=== PATIENT | female | born 1980 | race Caucasian/White ===

== ENCOUNTER 2016-12-25 06:45 | Emergency (ER) | payer MEDICAID ==
[~2016-12-25] VITALS: Ht 160 cm; Wt 74.8 kg
[~2016-12-25 06:45] MED LIST: COLACE100 M1 PO; FLOMAX0.4 MG PO; NAPROSYN500 MG PO; NORCO 325 MG-7.1 TAB PO; ULTRAM50 MG PO
[2016-12-25 06:49] VITALS: BP 97/59
--- NOTE | 2016-12-25 06:59 | NUR ---
PATIENT PRESENTS TO ED WITH RIGHT FLANK PAIN X 3 DAYS AND COUGH . PT DENIES N/V/D; SKIN IS PINK/WARM/DRY; AAOX4 WITH EVEN AND STEADY GAIT; LUNGS CLEAR BL; HR EVEN AND REGULAR; PT DENIES ANY FEVER, CP, SOB AT THIS TIME; PATIENT STATES PAIN OF 10/10 AT THIS TIME; VSS; PATIENT POSITIONED FOR COMFORT; HOB ELEVATED; BEDRAILS UP X2; BED DOWN. ER MD MADE AWARE OF PT STATUS.
--- NOTE | 2016-12-25 07:19 | NUR ---
Dr. Alonzo evaluating patient at bedside.
[2016-12-25] MEDS ORDERED: NACL 0.9% 1,000 ML IV SCH (07:24)
[2016-12-25] MEDS ORDERED: KETOROLAC 30 MG/ML VIAL IVP ONE (07:25)
[2016-12-25] MEDS ORDERED: ONDANSETRON 4 MG/2 ML VIAL IVP ONE (07:25)
--- NOTE | 2016-12-25 07:46 | NUR ---
Ultrasound at bedside.
--- NOTE | 2016-12-25 08:59 | NUR ---
Patient appears to be resting comfortably in bed. Vital Signs within normal limits. Respirations even and unlabored.
[2016-12-25 10:07] VITALS: BP 88/55
--- NOTE | 2016-12-25 10:09 | NUR ---
Patient discharged with v/s stable. Written and verbal after care instructions given and explained. Patient alert, oriented and verbalized understanding of instructions. Ambulatory with steady gait. All questions addressed prior to discharge. ID band removed. Patient advised to follow up with PMD. Rx of NORCO AND ZOFRAN given. Patient educated on indication of medication including possible reaction and side effects. Opportunity to ask questions provided and answered.
== END 2016-12-25 09:18 | disposition home or self-care (01) ==
LOC: MED 06:45
DX: B34.9 Viral infection, unspecified (principal); Z87.442 Personal history of urinary calculi
CPT/HCPCS: 36415; 76705; 80053; 81001; 81025; 83605; 83690; 83735; 85025; 87040; 96361; 96374; 96375; 99285; J1885; J2405; J7030; Q0092

== ENCOUNTER 2017-11-10 15:17 | Emergency (ER) | payer MEDICAID ==
[~2017-11-10] VITALS: Ht 157.5 cm; Wt 75.0 kg
[~2017-11-10 15:17] MED LIST changes: +ACET-2863 PO; -COLACE100 M1 PO; +DOCU-299 PO; -FLOMAX0.4 MG PO; +NAPR500T1 PO; -NAPROSYN500 MG PO; -NORCO 325 MG-7.1 TAB PO; +TAMS0.4C96 PO; -ULTRAM50 MG PO
[2017-11-10 15:51] VITALS: BP 126/75
--- NOTE | 2017-11-10 15:52 | NUR ---
PT AA&O X 4 WITH EVEN AND STEADY GAIT; PT TO LOBBY AWAITING OPEN AVAILABLE BED AT THIS TIME.
--- NOTE | 2017-11-10 16:34 | NUR ---
patient to er bed 11
--- NOTE | 2017-11-10 16:39 | NUR ---
37F BIB FAMILY C/O N/V/D , BL LOWER BACK PAIN & LOWER ABD PAINX 4 DAYS WITH HEMATURIA.HX: KIDNEY STONES.RX: PT DENIES.SKIN IS PINK/WARM/DRY; AAOX4 WITH EVEN AND STEADY GAIT; LUNGS CLEAR BL; PATIENT POSITIONED FOR COMFORT; HOB ELEVATED; BEDRAILS UP X2; BED DOWN. ER MD MADE AWARE OF PT STATUS.
[2017-11-10] MEDS ORDERED: NACL 0.9% 500 ML IV ONE ×2 (16:58)
[2017-11-10] MEDS ORDERED: KETOROLAC 30 MG/ML VIAL IVP ONE (17:00)
[2017-11-10] MEDS ORDERED: ONDANSETRON 4 MG/2 ML VIAL IVP ONE (17:00)
[2017-11-10 18:05] VITALS: BP 126/75
--- NOTE | 2017-11-10 18:06 | NUR ---
Patient discharged with v/s stable. Written and verbal after care instructions given and explained. Patient alert, oriented and verbalized understanding of instructions. Ambulatory with steady gait. All questions addressed prior to discharge. ID band removed. Patient advised to follow up with PMD. Rx of ZOFRAN, TRAMADOL, AND MOTRIN given. Patient educated on indication of medication including possible reaction and side effects. Opportunity to ask questions provided and answered.
== END 2017-11-10 18:06 | disposition home or self-care (01) ==
LOC: MED 15:17
DX: N20.0 Calculus of kidney (principal); Z79.899 Other long term (current) drug therapy
CPT/HCPCS: 74176; 96361; 96374; 96375; 99284; J1885; J2405; J7030

== ENCOUNTER 2019-02-08 19:35 | Emergency (ER) | payer MEDICAID ==
[~2019-02-08] VITALS: Ht 154.9 cm; Wt 81.6 kg
[~2019-02-08 19:35] MED LIST changes: -ACET-2863 PO; +HYDR-5123 PO; +NAPR-54 PO; -NAPR500T1 PO
[2019-02-08 20:05] VITALS: BP 105/74
--- NOTE | 2019-02-08 20:13 | NUR ---
AMBULATED TO LOBBY WITH VSS. PROVIDING URINE.
--- NOTE | 2019-02-08 21:18 | NUR ---
PT AMBULATED TO BED 1
--- NOTE | 2019-02-08 21:40 | NUR ---
PATIENT PRESENTS TO ED WITH FELL OFF STEP-LADDER AT HOME. C/O LEFT HIP AND KNEE PAIN 5/10. BRISING NOTED. VSS. CMS INTACT BILAT LOWER EXTREMETIES. ALSO C/O BURNING WITH URINATION AND WISHES TO BE EVALUATED FOR UTI.DENIES N/V/D; SKIN IS PINK/WARM/DRY; AAOX4 WITH EVEN AND STEADY GAIT; LUNGS CLEAR BL; HR EVEN AND REGULAR; PT DENIES ANY FEVER, CP, SOB, OR COUGH AT THIS TIME; PATIENT STATES PAIN OF 5/10 AT THIS TIME; VSS; PATIENT POSITIONED FOR COMFORT; HOB ELEVATED; BEDRAILS UP X2; BED DOWN. ER MD MADE AWARE OF PT STATUS.
[2019-02-08 22:40] VITALS: BP 122/67
--- NOTE | 2019-02-08 22:40 | NUR ---
Patient discharged with v/s stable. Written and verbal after care instructions given and explained. Patient alert, oriented and verbalized understanding of instructions. Ambulatory with steady gait. All questions addressed prior to discharge. ID band removed. Patient advised to follow up with PMD. Rx of tramadol and motrin given. Patient educated on indication of medication including possible reaction and side effects. Opportunity to ask questions provided and answered.
== END 2019-02-08 22:41 | disposition home or self-care (01) ==
LOC: MED 19:35
DX: S70.02XA Contusion of left hip, initial encounter (principal); S80.02XA Contusion of left knee, initial encounter; N39.0 Urinary tract infection, site not specified; Z87.442 Personal history of urinary calculi; Z79.1 Long term (current) use of non-steroidal anti-inflammatories (NSAID); Z79.899 Other long term (current) drug therapy; Z79.891 Long term (current) use of opiate analgesic; W19.XXXA Unspecified fall, initial encounter; Y93.89 Activity, other specified; Y92.89 Other specified places as the place of occurrence of the external cause; Y99.8 Other external cause status
CPT/HCPCS: 73501; 73562; 81002; 81025; 87086; 87186; 99284

== ENCOUNTER 2019-12-24 19:22 | Emergency (ER) | payer MEDICAID ==
[~2019-12-24] VITALS: Ht 157.5 cm; Wt 86.2 kg
[2019-12-24 19:33] VITALS: BP 128/68
--- NOTE | 2019-12-24 19:35 | NUR ---
PT AMBULATED TO BED #12
--- NOTE | 2019-12-24 20:06 | NUR ---
BIB SELF C/O RIGHT WRIST PAIN X4 DAYS, DENIES INJURY. CMS + IN BILAT UPPER EXT. /10 PAIN. ROM IN TACT. SKIN IN TACT/COOL/ DRY. PT ALSO COMPLAINS OF FREQUENT URINATION AND BURNING STARTING IN THE BEGINNING OF THE MONTH. FLANK PAIN PRSENT 05/04. DENIES SOB/CP. RESP EVEN AND UNLABORED. PMH: UTI, RENAL STONES NKA
--- NOTE | 2019-12-24 20:09 | NUR ---
PT RIGHT WRIST PLACED IN RIGHT SIDE VELCRO IMMOBILIZER PER PA ORDERS, CMS WNL BEFORE AND AFTER.
[2019-12-24] MEDS ORDERED: KETOROLAC 30 MG/ML VIAL IM ONE (20:10)
[2019-12-24] MEDS ORDERED: cefTRIAXone 1,000 MG in LIDOCAINE MPF 1% 2.1 ML IM ONE (20:30)
[2019-12-24] MEDS ORDERED: LIDOCAINE MPF 1% 5 ML ONE (20:31)
[2019-12-24] MEDS ORDERED: cefTRIAXone 1,000 MG VIAL ONE (20:31)
[2019-12-24 20:52] VITALS: BP 128/68
--- NOTE | 2019-12-24 20:53 | NUR ---
Patient discharged with v/s stable. Written and verbal after care instructions given and explained. Patient alert, oriented and verbalized understanding of instructions. Ambulatory with steady gait. All questions addressed prior to discharge. ID band removed. Patient advised to follow up with PMD. Rx of NAPROXEN, MACROBID, PREDNISONE given. Patient educated on indication of medication including possible reaction and side effects. Opportunity to ask questions provided and answered.
== END 2019-12-24 20:53 | disposition home or self-care (01) ==
LOC: MED 19:22
DX: G56.01 Carpal tunnel syndrome, right upper limb (principal); N39.0 Urinary tract infection, site not specified; Z87.442 Personal history of urinary calculi; Z90.710 Acquired absence of both cervix and uterus; Z79.899 Other long term (current) drug therapy
CPT/HCPCS: 29125; 73110; 81002; 81025; 96372; 99283; J0696; J1885; J2001; Q0092

== ENCOUNTER 2020-10-06 22:35 | Emergency (ER) | payer MEDICAID ==
[~2020-10-06] VITALS: Ht 157.5 cm; Wt 76.2 kg
[2020-10-06 22:45] VITALS: BP 113/87
--- NOTE | 2020-10-06 22:51 | NUR ---
PT AMBULATED TO RESTROOM TO PROVIDE UA.
--- NOTE | 2020-10-06 23:01 | NUR ---
40 YO F BIB SELF FOR C/C OF 06/03 PAIN TO R SIDE OF BODY POST FALL X3DAYS. STATED SHE HIT HER HEAD AGAINST A CHAIR LEG, NO LOSS OF CONSCIOUSNESS. PERRLA, NO BUMPS ON HEAD FELT. PT STATED SHE FEELS BACK PAIN RADIATES TO UPPER ABD, VISIBLE BULDGE. BOWEL SOUNDS ACTIVE X4. SOFT TO TOUCH. PAIN RETRACTS WITH TOUCH. PT STATED SHE TOOK ADVIL FOR PAIN WITH SOME RELIEF. NO VISIBLE BRUISES. PT PLACED IN GOWN, GIVEN A WARM BLANKET. BED LOCKED IN LOWEST POSITION, SIDE RAILS X1. HX: KIDNEY STONES RX: DENIES NKA LMP:09/22/20
--- NOTE | 2020-10-06 23:12 | NUR ---
ERMD AT BEDSIDE.
[2020-10-06] MEDS ORDERED: KETOROLAC 60 MG/2 ML VIAL IM ONE (23:20)
--- NOTE | 2020-10-06 23:36 | NUR ---
Note undone in [facility] - 10/06/20 at 2337 by [email or web address] PT AMBUALTED TO BED 7 WITH STEADY GAIT. Addendum: 10/06/20 at 2336 by [email or web address] Amendment undone in [facility] - 10/06/20 at 2337 by [email or web address] BED 6
--- NOTE | 2020-10-06 23:36 | NUR ---
RAD AT BEDSIDE
--- NOTE | 2020-10-07 00:28 | NUR ---
PT TAKEN TO RAD VIA W/C
--- NOTE | 2020-10-07 00:48 | NUR ---
PT RETURNED FROM RAD VIA WHEELCHAIR
[2020-10-07 01:31] VITALS: BP 122/71
== END 2020-10-07 01:31 | disposition home or self-care (01) ==
LOC: MED 22:35
DX: S20.211A Contusion of right front wall of thorax, initial encounter (principal); S70.01XA Contusion of right hip, initial encounter; N28.9 Disorder of kidney and ureter, unspecified; Z79.899 Other long term (current) drug therapy; W19.XXXA Unspecified fall, initial encounter; Y93.89 Activity, other specified; Y92.89 Other specified places as the place of occurrence of the external cause; Y99.8 Other external cause status
CPT/HCPCS: 71101; 72170; 81002; 81025; 96372; 99284; J1885; 99283

== ENCOUNTER 2021-01-17 03:05 | Emergency (ER) | payer MEDICAID ==
[~2021-01-17] VITALS: Ht 157.5 cm; Wt 86.2 kg
[~2021-01-17 03:05] MED LIST changes: +HYDR-5080 PO; -HYDR-5123 PO
[2021-01-17 03:12] VITALS: BP 115/70
--- NOTE | 2021-01-17 03:12 | NUR ---
TO BED AMBULATORY
[2021-01-17] MEDS ORDERED: NACL 0.9% 1,000 ML IV ONE ×2 (03:25→04:40)
[2021-01-17] MEDS ORDERED: KETOROLAC 15 MG/ML VIAL IVP ONE (03:25)
[2021-01-17] MEDS ORDERED: MORPHINE SULFATE 2 MG/ML SYR IVP ONE ×2 (03:25→04:40)
--- NOTE | 2021-01-17 03:31 | NUR ---
Pt c/o lower abd x1 day with dysuria and nausea. States hx of gallstones a few years ago. Noted moaning and guarding abd. States she took a [place] but did not have any pain relief. A/Ox4, steady gait. VSS.
[2021-01-17 03:47] LABS: APPEARANCE,URINE SL CLOUDY (CLEAR); BILIRUBIN,URINE NEGATIVE (NEGATIVE); BLOOD, URINE 2+ (NEGATIVE); COLOR,URINE YELLOW (YELLOW); LEUKOCYTE ESTERASE ,URINE 3+ (NEGATIVE); NITRITE, URINE NEGATIVE (NEGATIVE); UGLUCOSE NEGATIVE (NEGATIVE)
[2021-01-17 03:52] LABS: BASOPHILS # (AUTO) 0.1 K/uL (0.00-0.22); EOSINOPHILS # (AUTO) 0.1 K/uL (0-0.4); EOSINOPHILS % (AUTO) 1.3 % (0.0-4.0); HEMATOCRIT 41.2 % (36-48); HEMOGLOBIN 13.2 g/dL (12.0-16.0); LYMPHOCYTES # (AUTO) 3.5 K/uL (2.5-16.5); LYMPHOCYTES % (AUTO) 32.3 % (20.5-51.1); MEAN CORPUSCULAR HEMOGLOBIN 25 pg (27-31); MEAN CORPUSCULAR HGB CONC 32 g/dL (33-37); MEAN CORPUSCULAR VOLUME 79.2 fL (80-94); MONOCYTES # (AUTO) 0.5 K/uL (0.8-1.0); MONOCYTES % (AUTO) 4.2 % (1.7-9.3); NEUTROPHILS # (AUTO) 6.5 K/uL (1.8-7.7); NEUTROPHILS % (AUTO) 61.2 % (42.2-75.2); PLATELET COUNT (AUTO) 273 K/uL (140-450); RED CELL DISTRIBUTION WIDTH 15.9 % (11.6-13.7); WHITE BLOOD COUNT (AUTO) 10.7 K/uL (4.8-10.8)
[2021-01-17 04:10] LABS: ALBUMIN 3.7 g/dL (3.4-5.0); ANION GAP 15.2 (8-16); CARBON DIOXIDE 24.6 mmol/L (21-32); CREATININE 1.1 mg/dL (0.6-1.3); POTASSIUM 3.8 mmol/L (3.5-5.1); TOTAL BILIRUBIN 0.2 mg/dL (0.0-1.0)
[2021-01-17 04:17] LABS: RBC,URINE 0-5 /HPF (0-5)
[2021-01-17 04:18] LABS: WBC,URINE 20-60 /HPF (0-5)
[2021-01-17] MEDS ORDERED: cefTRIAXone 1,000 MG VIAL ONE (04:36)
[2021-01-17 06:02] VITALS: BP 120/81
--- NOTE | 2021-01-17 06:04 | NUR ---
Patient discharged with v/s stable. Written and verbal after care instructions given and explained. Patient alert, oriented and verbalized understanding of instructions. Ambulatory with steady gait. All questions addressed prior to discharge. ID band removed. IV removed and pressure applied. Patient advised to follow up with PMD. Rx of Motrin, cefpodoxime proxetil, flomax, and [place] given. Patient educated on indication of medication including possible reaction and side effects. Opportunity to ask questions provided and answered.
--- NOTE | 2021-01-20 08:52 | NUR ---
LATE ENTRY -- ROCEPHIN INFUSION COMPLETED AT 0520 01/17/21
== END 2021-01-17 06:03 | disposition home or self-care (01) ==
LOC: MED 03:05
DX: N20.1 Calculus of ureter (principal); N39.0 Urinary tract infection, site not specified; Z87.442 Personal history of urinary calculi; Z79.899 Other long term (current) drug therapy
CPT/HCPCS: 36415; 74176; 80053; 81001; 81025; 83690; 85025; 87086; 96361; 96365; 96375; 96376; 99284; J0696; J1885; J2270; J7030

== ENCOUNTER 2021-04-20 19:36 | Emergency (ER) | payer MEDICAID ==
[~2021-04-20] VITALS: Ht 157.5 cm; Wt 84.8 kg
[2021-04-20 19:49] VITALS: BP 111/62
--- NOTE | 2021-04-20 19:55 | NUR ---
Pt. is a 40 y/o female that came into ED with c/o of left knee pain that started Saturday. SKIN IS PINK/WARM/DRY; AAOX4 WITH EVEN AND STEADY GAIT; HR EVEN AND REGULAR; PT DENIES ANY FEVER, CP, SOB, OR COUGH AT THIS TIME; PATIENT STATES PAIN OF 7/10 AT THIS TIME; VSS; PATIENT POSITIONED FOR COMFORT; HOB ELEVATED; BEDRAILS UP X2; BED DOWN. ER MD MADE AWARE OF PT STATUS. PMH: KIDNEY STONES ALLERGIES: NKA
--- NOTE | 2021-04-20 20:05 | NUR ---
DR. CHE AT BEDSIDE.
[2021-04-20] MEDS: KETOROLAC 60 MG/2 ML VIAL IM ONE (20:26)
[2021-04-20] MEDS ORDERED: IBUP-2213 PO (20:50)
[2021-04-20] MEDS ORDERED: CIPR500T4 PO (20:50)
[2021-04-20] MEDS ORDERED: ACET-8386 PO (20:51)
[2021-04-20 21:01] VITALS: BP 111/62
--- NOTE | 2021-04-20 21:01 | NUR ---
Patient discharged with v/s stable. Written and verbal after care instructions given and explained. Patient alert, oriented and verbalized understanding of instructions. Ambulatory with steady gait. All questions addressed prior to discharge. ID band removed. Patient advised to follow up with PMD. Rx of HYDROCODONE/ACETEMINOPHEN, CIPRO, IBUPROFEN given. Patient educated on indication of medication including possible reaction and side effects. Opportunity to ask questions provided and answered.
== END 2021-04-20 21:01 | disposition home or self-care (01) ==
LOC: MED 19:36
DX: M25.562 Pain in left knee (principal); N12 Tubulo-interstitial nephritis, not specified as acute or chronic; Z79.899 Other long term (current) drug therapy; Z87.442 Personal history of urinary calculi; Z98.890 Other specified postprocedural states
CPT/HCPCS: 81002; 81025; 96372; 99283; J1885

== ENCOUNTER 2021-07-16 01:44 | Emergency (ER) | payer MEDICAID ==
[~2021-07-16] VITALS: Ht 157.5 cm; Wt 82.6 kg
[~2021-07-16 01:44] MED LIST changes: +ACET-8386 PO; +CIPR500T4 PO; +IBUP-2213 PO
[2021-07-16 02:22] VITALS: BP 134/81
--- NOTE | 2021-07-16 02:22 | NUR ---
see complete assessment
--- NOTE | 2021-07-16 02:28 | NUR ---
PATIENT AMBULATED TO THE BATHROOM FOR URINE COLLECTION
--- NOTE | 2021-07-16 02:33 | NUR ---
PATIENT TO LOBBY
[2021-07-16] MEDS ORDERED: NACL 0.9% 1,000 ML IV SCH (03:50)
[2021-07-16] MEDS ORDERED: MORPHINE SULFATE 2 MG/ML SYR IVP ONE (03:50)
[2021-07-16] MEDS ORDERED: ONDANSETRON 4 MG/2 ML VIAL IVP ONE (03:50)
[2021-07-16 04:01] LABS: APPEARANCE,URINE CLEAR (CLEAR); BILIRUBIN,URINE NEGATIVE (NEGATIVE); BLOOD, URINE NEGATIVE (NEGATIVE); COLOR,URINE YELLOW (YELLOW); LEUKOCYTE ESTERASE ,URINE TRACE (NEGATIVE); NITRITE, URINE NEGATIVE (NEGATIVE); UGLUCOSE NEGATIVE (NEGATIVE)
[2021-07-16 04:17] LABS: BASOPHILS # (AUTO) 0.1 K/uL (0.00-0.22); BASOPHILS % (AUTO) 0.5 % (0.0-2.0); EOSINOPHILS # (AUTO) 0.2 K/uL (0-0.4); EOSINOPHILS % (AUTO) 1.6 % (0.0-4.0); HEMATOCRIT 42.1 % (36-48); HEMOGLOBIN 13.7 g/dL (12.0-16.0); LYMPHOCYTES # (AUTO) 3.8 K/uL (2.5-16.5); LYMPHOCYTES % (AUTO) 38.9 % (20.5-51.1); MEAN CORPUSCULAR HEMOGLOBIN 25 pg (27-31); MEAN CORPUSCULAR HGB CONC 33 g/dL (33-37); MEAN CORPUSCULAR VOLUME 77.1 fL (80-94); MONOCYTES # (AUTO) 0.6 K/uL (0.8-1.0); MONOCYTES % (AUTO) 6.1 % (1.7-9.3); NEUTROPHILS # (AUTO) 5.2 K/uL (1.8-7.7); NEUTROPHILS % (AUTO) 52.9 % (42.2-75.2); PLATELET COUNT (AUTO) 277 K/uL (140-450); RED BLOOD CELL COUNT(AUTO) 5.46 MIL/uL (4.20-5.40); RED CELL DISTRIBUTION WIDTH 15.6 % (11.6-13.7); WHITE BLOOD COUNT (AUTO) 9.9 K/uL (4.8-10.8)
[2021-07-16 04:22] LABS: RBC,URINE 0-5 /HPF (0-5); WBC,URINE 0-5 /HPF (0-5)
--- NOTE | 2021-07-16 04:35 | NUR ---
PT TAKEN TO CHAIR C FROM CT
[2021-07-16 04:37] LABS: ALBUMIN 3.6 g/dL (3.4-5.0); ANION GAP 11.1 (8-16); CARBON DIOXIDE 28.1 mmol/L (21-32); CREATININE 0.9 mg/dL (0.6-1.3); POTASSIUM 4.2 mmol/L (3.5-5.1); TOTAL BILIRUBIN 0.2 mg/dL (0.0-1.0)
--- NOTE | 2021-07-16 05:41 | NUR ---
patient to the bathroom
[2021-07-16] MEDS ORDERED: cefTRIAXone 1,000 MG VIAL ONE (05:42)
[2021-07-16] MEDS ORDERED: IBUP-2213 PO (06:55)
[2021-07-16] MEDS ORDERED: CEPH-588 PO (06:55)
[2021-07-16] MEDS ORDERED: KETOROLAC 30 MG/ML VIAL IVP ONE (06:55)
[2021-07-16] MEDS ORDERED: PANTOPRAZOLE 40 MG INJ VIAL IVP ONE (06:55)
[2021-07-16] MEDS ORDERED: PANT40EC PO (06:56)
[2021-07-16 07:47] VITALS: BP 124/75
--- NOTE | 2021-07-16 07:53 | NUR ---
Patient discharged with v/s stable. Written and verbal after care instructions given and explained. Patient alert, oriented and verbalized understanding of instructions. Ambulatory with steady gait. All questions addressed prior to discharge. ID band removed. Patient advised to follow up with PMD. Rx of KEFLEX,PROTONIX,IBU given. Patient educated on indication of medication including possible reaction and side effects. Opportunity to ask questions provided and answered.
== END 2021-07-16 07:53 | disposition home or self-care (01) ==
LOC: MED 01:44
DX: N20.0 Calculus of kidney (principal); R82.71 Bacteriuria; Z79.899 Other long term (current) drug therapy; Z87.442 Personal history of urinary calculi
CPT/HCPCS: 36415; 74176; 80053; 81001; 81025; 83690; 84703; 85025; 96361; 96365; 96375; 99284; C9113; J0696; J1885; J2270; J2405; J7030

== ENCOUNTER 2021-08-13 18:02 | Emergency (ER) | payer MEDICAID ==
[~2021-08-13] VITALS: Ht 157.5 cm; Wt 86.6 kg
[~2021-08-13 18:02] MED LIST changes: +CEPH-588 PO; +PANT40EC PO
[2021-08-13 18:25] VITALS: BP 123/74
--- NOTE | 2021-08-13 18:27 | NUR ---
PT AMBULATED TO RESTROOM FOR UA COLLECTION.
--- NOTE | 2021-08-13 18:33 | NUR ---
41 Y/O FEMALE C/O BILATERAL FLANK PAIN 8/10 DESCRIBES SHARP RADIATES TO SUPRAPUBIC AREA X4DAYS. PT STATES +N/V FOR 2DAYS WITH +DYSURIA, +HEMATURIA, DENIES FEVER/CHILLS. PMH: KIDNEY STONES NKA
--- NOTE | 2021-08-13 19:28 | NUR ---
GAVE REPORT TO EVAN AMRADIAGA. TRANSFER OF CARE AT THIS TIME.
--- NOTE | 2021-08-13 19:33 | NUR ---
REPORT RECIEVED FROM EVAN MELTON FOR CONTINUITY OF CARE.
[2021-08-13] MEDS ORDERED: KETOROLAC 15 MG/ML VIAL IM ONE (20:00)
--- NOTE | 2021-08-13 20:22 | NUR ---
PT PLACED IN GOWN FOR CT. PROVIDED WARM BLANKET FOR COMFORT.
[2021-08-13 20:40] LABS: BILIRUBIN,URINE NEGATIVE (NEGATIVE); BLOOD, URINE TRACE-I (NEGATIVE); COLOR,URINE YELLOW (YELLOW); LEUKOCYTE ESTERASE ,URINE NEGATIVE (NEGATIVE); NITRITE, URINE NEGATIVE (NEGATIVE); UGLUCOSE NEGATIVE (NEGATIVE)
[2021-08-13 20:51] LABS: APPEARANCE,URINE SLIGHTLY HAZY (CLEAR)
[2021-08-13 20:52] LABS: CALCIUM OXALATE CRYSTALS,UR 0-10 /HPF (None Seen); RBC,URINE 0-5 /HPF (0-5)
--- NOTE | 2021-08-13 21:00 | NUR ---
PT TAKEN TO CT VIA W.C.
--- NOTE | 2021-08-13 21:05 | NUR ---
PT RETURNED FROM CT VIA W.C.
[2021-08-13] MEDS ORDERED: KETOROLAC 15 MG/ML VIAL IVP ONE (21:45)
[2021-08-13] MEDS ORDERED: SULFAMETH/TRIMETH DS 800/160MG 1 TAB PO ONE (21:45)
[2021-08-13] MEDS ORDERED: KETOROLAC 60 MG/2 ML VIAL IM ONE (22:25)
--- NOTE | 2021-08-13 23:38 | NUR ---
PT AMBULATED TO RESTROOM WITH STEADY AND EVEN GAIT.
[2021-08-13] MEDS ORDERED: SULF-58 PO (23:43)
[2021-08-13] MEDS ORDERED: IBUP-2213 PO (23:43)
[2021-08-13 23:50] VITALS: BP 121/77
--- NOTE | 2021-08-13 23:50 | NUR ---
Patient discharged with v/s stable. Written and verbal after care instructions given and explained. Patient alert, oriented and verbalized understanding of instructions. Ambulatory with steady gait. All questions addressed prior to discharge. ID band removed. Patient advised to follow up with PMD. Rx of MOTRIN AND BACTRIM given. Patient educated on indication of medication including possible reaction and side effects. Opportunity to ask questions provided and answered.
== END 2021-08-13 23:50 | disposition home or self-care (01) ==
LOC: MED 18:02
DX: N39.0 Urinary tract infection, site not specified (principal); Z79.899 Other long term (current) drug therapy; Z87.442 Personal history of urinary calculi
CPT/HCPCS: 74176; 81001; 81025; 87086; 96372; 99284; J1885

== ENCOUNTER 2021-12-19 20:44 | Emergency (ER) | payer MEDICAID ==
[~2021-12-19] VITALS: Ht 157.5 cm; Wt 94.3 kg
[~2021-12-19 20:44] MED LIST changes: +SULF-58 PO
[2021-12-19 21:32] VITALS: BP 130/81
--- NOTE | 2021-12-19 21:36 | NUR ---
PATIENT TO AWAIT IN TENT
[2021-12-19] MEDS ORDERED: ONDANSETRON 4 MG/2 ML VIAL IVP ONE (22:15)
[2021-12-19] MEDS ORDERED: MORPHINE SULFATE 2 MG/ML SYR IVP ONE (22:15)
[2021-12-19] MEDS ORDERED: NACL 0.9% 1,000 ML IV SCH (22:15)
[2021-12-19 23:34] LABS: BASOPHILS # (AUTO) 0.1 K/uL (0.00-0.22); BASOPHILS % (AUTO) 0.6 % (0.0-2.0); EOSINOPHILS # (AUTO) 0.2 K/uL (0-0.4); EOSINOPHILS % (AUTO) 2.5 % (0.0-4.0); HEMOGLOBIN 12.8 g/dL (12.0-16.0); LYMPHOCYTES % (AUTO) 33.2 % (20.5-51.1); MEAN CORPUSCULAR HEMOGLOBIN 25 pg (27-31); MEAN CORPUSCULAR HGB CONC 33 g/dL (33-37); MEAN CORPUSCULAR VOLUME 75.7 fL (80-94); MONOCYTES # (AUTO) 0.7 K/uL (0.8-1.0); MONOCYTES % (AUTO) 7.8 % (1.7-9.3); NEUTROPHILS # (AUTO) 5.1 K/uL (1.8-7.7); NEUTROPHILS % (AUTO) 55.9 % (42.2-75.2); PLATELET COUNT (AUTO) 306 K/uL (140-450); RED BLOOD CELL COUNT(AUTO) 5.16 MIL/uL (4.20-5.40); RED CELL DISTRIBUTION WIDTH 15.1 % (11.6-13.7); WHITE BLOOD COUNT (AUTO) 9.1 K/uL (4.8-10.8)
[2021-12-20 00:26] LABS: ALBUMIN 3.4 g/dL (3.4-5.0); ANION GAP 11.3 (8-16); CARBON DIOXIDE 27.5 mmol/L (21-32); POTASSIUM 3.8 mmol/L (3.5-5.1); TOTAL BILIRUBIN 0.3 mg/dL (0.0-1.0)
--- NOTE | 2021-12-20 00:56 | NUR ---
PT MOVED TO BED 10B, PER ERMD PT TOO BE DISCHARGED AT THIS TIME. PT ASSEEMENT COMPLETED BY ERMD. NO NURSING INTERVENTIONS REQUIRED AT THIS TIME. PER ERMD CANCEL URINE, NS BOLUS, MORPHINE AND SOFRAN ADMIN.
--- NOTE | 2021-12-20 00:56 | NUR ---
PATIENT MOVED TO BED 10B
[2021-12-20] MEDS ORDERED: ONDA-188 SL (01:03)
[2021-12-20] MEDS ORDERED: ALBU0.0912 IH (01:13)
[2021-12-20] MEDS ORDERED: ONDANSETRON 4 MG ODT PO ONE (01:15)
[2021-12-20] MEDS ORDERED: IBUPROFEN 800 MG TAB PO ONE (01:15)
--- NOTE | 2021-12-20 01:33 | NUR ---
Note undone in EDM - 12/20/21 at 0656 by CY 41 YO/F BIB SELF W C/O RUQ ABDOMINAL PAIN RADIATING TO R FLANK + MILD SOB, CHEST PAIN PRESSURE LIKE RADIATING TO BACK, + NAUSEA FOR APPROX 3 DAYS. PT RELATES SYMPTOMS TO BEING COVID +, PT REPORTS SYMPTOMS ARE IMPROVING BUT IS CONCERNED BC SHE HAD A RECENT RELATIVE PASS AWAY FROM COVID. PT ALSO REPORTS RECENT GALL BLADDER REMOVAL X2 MONTHS AGO. PT O2 SAT 97% ON RA. PT AMBULATORY W STADY GAIT. VSS. PT SITTING ON BED LOCKED IN LOWEST POSITION. BREATHING EVEN AND UNLABORED. NAD NOTED, WILL CONTINUE TO MONITOR. PMH:CHOLELITHIASIS, KIDNEY STONES ALLERGIES: DENIES
[2021-12-20 02:00] VITALS: BP 146/76
--- NOTE | 2021-12-20 02:00 | NUR ---
Patient discharged with v/s stable. Written and verbal after care instructions given and explained. Patient alert, oriented and verbalized understanding of instructions. Ambulatory with steady gait. All questions addressed prior to discharge. ID band removed. Patient advised to follow up with PMD. Rx of ALBUTEROL, ZOFRAN given. Patient educated on indication of medication including possible reaction and side effects. Opportunity to ask questions provided and answered.
== END 2021-12-20 02:00 | disposition home or self-care (01) ==
LOC: MED 20:44
DX: U07.1 COVID-19 (principal); R10.11 Right upper quadrant pain; R07.89 Other chest pain; Z87.442 Personal history of urinary calculi; Z79.899 Other long term (current) drug therapy
CPT/HCPCS: 36415; 71045; 76705; 80053; 83690; 84484; 84703; 85025; 93005; 99285; Q0092; Q0162

== ENCOUNTER 2022-09-13 23:10 | Emergency (ER) | payer MEDICAID ==
[~2022-09-13] VITALS: Ht 157.5 cm; Wt 83.9 kg
[~2022-09-13 23:10] MED LIST changes: -ACET-8386 PO; -CEPH-588 PO; -CIPR500T4 PO; -DOCU-299 PO; -HYDR-5080 PO; -IBUP-2213 PO; +LACT1CAP63 PO; -NAPR-54 PO; -PANT40EC PO; -SULF-58 PO; +SULF-954 PO
[2022-09-13 23:30] VITALS: BP 120/87
--- NOTE | 2022-09-13 23:30 | NUR ---
to bed ambulatory
--- NOTE | 2022-09-13 23:40 | NUR ---
ASSUME CARE OF PT, PT PLACED ON MONITOR AND GOWN, PT C/O RUQ ABD AND FLANK PAIN, PT STATES SHE WAS ADMITTED FOR A FEW DAYS DUE TO KIDNEY STONES AND INFECTION, PT STATES SHE HAS BEEN TAKING MOTRIN FOR HER PAIN BUT NO RELIEF FOR SEVERAL WEEKS.
[2022-09-13] MEDS ORDERED: NACL 0.9% 1,000 ML IV ONE (23:50)
[2022-09-13] MEDS ORDERED: MORPHINE SULFATE 4 MG/ML SYR IVP ONE (23:50)
[2022-09-13] MEDS ORDERED: ONDANSETRON 4 MG/2 ML VIAL IVP ONE (23:50)
[2022-09-13] MEDS ORDERED: KETOROLAC 30 MG/ML VIAL IVP ONE (23:55)
[2022-09-14 00:08] LABS: BASOPHILS # (AUTO) 0.1 K/uL (0.00-0.22); BASOPHILS % (AUTO) 0.9 % (0.0-2.0); EOSINOPHILS # (AUTO) 0.3 K/uL (0-0.4); EOSINOPHILS % (AUTO) 2.6 % (0.0-4.0); HEMATOCRIT 37.5 % (36-48); HEMOGLOBIN 12.2 g/dL (12.0-16.0); LYMPHOCYTES # (AUTO) 3.3 K/uL (2.5-16.5); LYMPHOCYTES % (AUTO) 33.1 % (20.5-51.1); MEAN CORPUSCULAR HEMOGLOBIN 25 pg (27-31); MEAN CORPUSCULAR HGB CONC 33 g/dL (33-37); MEAN CORPUSCULAR VOLUME 76.1 fL (80-94); MONOCYTES # (AUTO) 0.6 K/uL (0.8-1.0); NEUTROPHILS # (AUTO) 5.8 K/uL (1.8-7.7); NEUTROPHILS % (AUTO) 57.4 % (42.2-75.2); PLATELET COUNT (AUTO) 286 K/uL (140-450); RED BLOOD CELL COUNT(AUTO) 4.92 MIL/uL (4.20-5.40); RED CELL DISTRIBUTION WIDTH 17.5 % (11.6-13.7)
--- NOTE | 2022-09-14 00:09 | NUR ---
PT TAKEN TO RADIOLOGY
--- NOTE | 2022-09-14 00:17 | NUR ---
PT RETURN FROM RADIOLOGY
[2022-09-14 00:29] LABS: ALBUMIN 3.3 g/dL (3.4-5.0); ANION GAP 12.5 (8-16); POTASSIUM 4.5 mmol/L (3.5-5.1); TOTAL BILIRUBIN 0.2 mg/dL (0.0-1.0)
--- NOTE | 2022-09-14 02:00 | NUR ---
PT AMBULATED TO RESTROOM, PT STATES AFTER SHE WENT TO THE RESTROOM THE PAIN INCREASED.
--- NOTE | 2022-09-14 02:30 | NUR ---
pt resting in bed, states she feels better.
[2022-09-14] MEDS ORDERED: CEPH-588 PO (04:14)
[2022-09-14] MEDS ORDERED: ACETAMINOPHEN EXTRA STRENGTH 500 MG TAB PO ONE (04:40)
[2022-09-14] MEDS ORDERED: IBUP-1878 PO (04:42)
[2022-09-14] MEDS ORDERED: HYDROcodone/APAP 5/325 MG 1 TAB TAB PO ONE (04:45)
[2022-09-14 04:59] VITALS: BP 128/70
--- NOTE | 2022-09-14 04:59 | NUR ---
Patient discharged with v/s stable. Written and verbal after care instructions given and explained. Patient alert, oriented and verbalized understanding of instructions. Ambulatory with steady gait. All questions addressed prior to discharge. ID band removed. Patient advised to follow up with PMD. Rx sent to pharmacy. Patient educated on indication of medication including possible reaction and side effects. Opportunity to ask questions provided and answered.
== END 2022-09-14 04:59 | disposition home or self-care (01) ==
LOC: MED 23:10
DX: R10.30 Lower abdominal pain, unspecified (principal); R11.2 Nausea with vomiting, unspecified; Z87.448 Personal history of other diseases of urinary system; Z79.2 Long term (current) use of antibiotics; Z79.899 Other long term (current) drug therapy
CPT/HCPCS: 36415; 74176; 80053; 81002; 81025; 85025; 96361; 96374; 96375; 99284; J1885; J2405; J7030

== ENCOUNTER 2022-10-02 10:25 | Inpatient (IN) | payer MEDICAID ==
[~2022-10-02] VITALS: Ht 157.5 cm; Wt 81.6 kg
[~2022-10-02 10:25] MED LIST changes: +CEPH-588 PO; +IBUP-1878 PO
[2022-10-02 10:26] VITALS: BP 123/79
--- NOTE | 2022-10-02 10:40 | NUR ---
Pt ambulated to bed 12 with steady/even gait. Urine sample collected.
[2022-10-02] MEDS ORDERED: NACL 0.9% 1,000 ML IV ONE ×2 (12:15→16:10)
[2022-10-02] MEDS ORDERED: KETOROLAC 30 MG/ML VIAL IVP ONE (12:15)
[2022-10-02 13:02] LABS: BASOPHILS % (AUTO) 0.1 % (0.0-2.0); HEMATOCRIT 37.6 % (36-48); HEMOGLOBIN 12.4 g/dL (12.0-16.0); LYMPHOCYTES # (AUTO) 0.8 K/uL (2.5-16.5); LYMPHOCYTES % (AUTO) 4.5 % (20.5-51.1); MEAN CORPUSCULAR HEMOGLOBIN 25 pg (27-31); MEAN CORPUSCULAR HGB CONC 33 g/dL (33-37); MEAN CORPUSCULAR VOLUME 75.5 fL (80-94); MONOCYTES # (AUTO) 0.6 K/uL (0.8-1.0); MONOCYTES % (AUTO) 3.1 % (1.7-9.3); NEUTROPHILS # (AUTO) 17.4 K/uL (1.8-7.7); NEUTROPHILS % (AUTO) 92.3 % (42.2-75.2); PLATELET COUNT (AUTO) 242 K/uL (140-450); RED BLOOD CELL COUNT(AUTO) 4.98 MIL/uL (4.20-5.40); RED CELL DISTRIBUTION WIDTH 16.6 % (11.6-13.7); WHITE BLOOD COUNT (AUTO) 18.8 K/uL (4.8-10.8)
[2022-10-02 13:38] LABS: ALBUMIN 3.1 g/dL (3.4-5.0); ANION GAP 16.5 (8-16); CARBON DIOXIDE 23.1 mmol/L (21-32); CREATININE 1.4 mg/dL (0.6-1.3); POTASSIUM 3.6 mmol/L (3.5-5.1); TOTAL BILIRUBIN 0.8 mg/dL (0.0-1.0)
--- NOTE | 2022-10-02 14:28 | NUR ---
Patient returned from CT via gurney and placed back onto engine monitor.
[2022-10-02] MEDS ORDERED: MORPHINE SULFATE 4 MG/ML SYR IVP ONE (15:20)
[2022-10-02 15:43] LABS: BILIRUBIN,URINE NEGATIVE (NEGATIVE); BLOOD, URINE TRACE-I (NEGATIVE); COLOR,URINE YELLOW (YELLOW); LEUKOCYTE ESTERASE ,URINE 2+ (NEGATIVE); NITRITE, URINE POSITIVE (NEGATIVE); UGLUCOSE TRACE (NEGATIVE)
--- NOTE | 2022-10-02 16:00 | NUR ---
Pt laying in bed comfortably, eyes closed. All needs met at this time.
[2022-10-02 16:08] LABS: APPEARANCE,URINE HAZY (CLEAR)
[2022-10-02 16:14] LABS: RBC,URINE 0-5 /HPF (0-5); WBC,URINE 20-60 /HPF (0-5)
[2022-10-02] MEDS ORDERED: cefTRIAXone 1,000 MG VIAL ONE (16:28)
--- NOTE | 2022-10-02 16:58 | NUR ---
CRISTY SWAB COLLECTED AND WALKED TO LAB.
[2022-10-02] MEDS ORDERED: DEXT 5% /NACL 0.9% 1,000 ML IV ONE (17:30)
--- NOTE | 2022-10-02 17:57 | NUR ---
Patient will be admitted to care of Dr. Cherry. Admited to TELE. Will go to room 105B. Belongings list completed. Report to EVAN Pal.
[2022-10-02 18:05] VITALS: BP 121/86
--- NOTE | 2022-10-02 18:05 | NUR ---
RECEIVED PT FROM BRAZER INDUCTION, HALI, PT IS ALERT AND ORIENTED AND AMBULATED TO THE BED, ON ROOM AIR, ARMENIAN SPEAKING, IV LINE NOTED ON THE RIGHT AC G. 20 ON SALINE LOCK, NO SIGN OF DISTRESS NOTED AND WILL CONTINUE TO MONITOR PT.
--- NOTE | 2022-10-02 18:15 | NUR ---
MRSA SWAB DONE AND SAMPLE SENT TO LAB.
[2022-10-02] MEDS ORDERED: ACETAMINOPHEN 325 MG TAB PO PRN (18:50)
[2022-10-02] MEDS ORDERED: guaiFENesin DM 200/20 MG-10 ML 10 ML UDC PO PRN (18:50)
[2022-10-02] MEDS ORDERED: HYDROmorphone 1 MG/ML AMP IVP PRN (18:50)
[2022-10-02] MEDS ORDERED: ZOLPIDEM 5 MG TAB PO PRN (18:50)
[2022-10-02] MEDS ORDERED: POTASSIUM CHLORIDE 10 MEQ TABER PO PRN (18:50)
[2022-10-02] MEDS: DEXT 5% /NACL 0.9% 1,000 ML IV SCH (18:50)
--- NOTE | 2022-10-02 19:29 | NUR ---
RECEIVED ENDORSEMENT FROM DAY SHIFT NURSE FOR CONTINUITY OF CARE. PT IS ON BED, AWAKE, ALERT AND VERBALLY RESPONSIVE. SKIN INTACT AND WARM. IV SITE ON RIGHT AC INTACT AND PATENT, FLUSHING WELL WITH NO OBSTRUCTION. IV HYDRATION D5NS IS INFUSING WELL AT 125ML/HR. PT IS FOR POSSIBLE SURGERY PROCEDURE ON 10/03/22. SKIN INTACT WITH NO NOTED OF SKIN PROBLEM. CONTINUE MONITORING.
[2022-10-02] MEDS: PIPERACILLIN/TAZOBACTAM 3.375 GM in DEXTROSE 5% 50 ML IV SCH (19:30)
--- NOTE | 2022-10-02 19:30 | NUR ---
ENDORSED PT TO NIGHT RN FOR CONTINUITY OF CARE, PT IS STABLE AT THIS TIME AND RESTING ON THE BED.
[2022-10-02 19:39] LABS: AMYLASE 36 U/L (25-115); CHOL/HDL RATIO 2.1 (1-4.5); FREE T4 (FREE THYROXINE) 1.19 ng/dL (0.76-1.46); HDL CHOLESTEROL 56 mg/dL (40-60); LDL (CALC) 52 mg/dL (60-100); LIPASE 38 U/L (73-393); MAGNESIUM 1.2 mg/dL (1.8-2.4); PHOSPHORUS 2.4 mg/dL (2.5-4.9); THYROID STIMULATING HORMONE 2.52 uIU/mL (0.34-3.74); TRIGLYCERIDES 64 mg/dL (30-150)
[2022-10-02 19:40] LABS: PROTHROMBIN TIME 10.5 secs (10.8-13.4)
[2022-10-02] MEDS: TAMSULOSIN 0.4 MG CAP PO SCH (20:40)
[2022-10-02] MEDS: MORPHINE SULFATE 2 MG/ML SYR IVP PRN (20:42)
--- NOTE | 2022-10-02 20:42 | NUR ---
PT COMPLAINTS OF PAIN ON THE BACK AND ON THE LOWER ABDOMINAL AREA /, PAIN MEDICATION MORPHINE ADMINISTERED ORDER.
--- NOTE | 2022-10-02 23:01 | NUR ---
PT HAS MAGNESIUM LEVEL OF 1.2, PHOSPHORUS 2.4 & LIPASE 38, REPORTED TO DR. OLIVE MD ORDER MAG RIDER 2GM X 1. CALLED PHARMACY TO VERIFY THE MEDICATION. WAITING FOR PHARMACY IN PROCESSING ORDER.
[2022-10-02] MEDS ORDERED: MAG SULF 2000 MG/WATER PREMIX 50 ML IV ONE (23:05)
--- NOTE | 2022-10-02 23:30 | NUR ---
MAGNESIUM 2GM IV ADMINISTERED ORDER. PT IS AWAKE AND VERBALLY RESPONSIVE.
[2022-10-03] VITALS (12 sets, daily range): BP systolic 96–132; BP diastolic 45–73
[2022-10-03] MEDS: PIPERACILLIN/TAZOBACTAM 3.375 GM in DEXTROSE 5% 50 ML IV SCH ×4 (00:52→20:00)
--- NOTE | 2022-10-03 02:00 | NUR ---
PT NOTED WITH ON & OFF SLEEPS.
[2022-10-03] MEDS: MORPHINE SULFATE 2 MG/ML SYR IVP PRN (03:25)
--- NOTE | 2022-10-03 03:25 | NUR ---
PT COMPLAINTS OF LOWER ABDOMINAL & BACK PAIN 09/03, PAIN MEDICATION MORPHINE ADMINISTERED ORDER.
[2022-10-03] MEDS: ONDANSETRON 4 MG/2 ML VIAL IM/IVP PRN (03:37)
--- NOTE | 2022-10-03 03:37 | NUR ---
PT VERBALIZED OF HAVING NAUSEA, PT VOMITED WATER. PT ALSO COMPLAINT OF FEELING DIZZINESS. MEDICATION FOR VOMIT, ZOFRAN, ADMINISTERED ORDER.
[2022-10-03] MEDS: DEXT 5% /NACL 0.9% 1,000 ML IV SCH ×4 (05:50→21:01)
[2022-10-03 06:56] LABS: BASOPHILS % (AUTO) 0.1 % (0.0-2.0); EOSINOPHILS % (AUTO) 0.1 % (0.0-4.0); HEMATOCRIT 32.7 % (36-48); HEMOGLOBIN 10.6 g/dL (12.0-16.0); LYMPHOCYTES # (AUTO) 1.2 K/uL (2.5-16.5); LYMPHOCYTES % (AUTO) 7.6 % (20.5-51.1); MEAN CORPUSCULAR HEMOGLOBIN 25 pg (27-31); MEAN CORPUSCULAR HGB CONC 32 g/dL (33-37); MEAN CORPUSCULAR VOLUME 76.4 fL (80-94); MONOCYTES # (AUTO) 0.3 K/uL (0.8-1.0); MONOCYTES % (AUTO) 1.7 % (1.7-9.3); NEUTROPHILS # (AUTO) 14.3 K/uL (1.8-7.7); NEUTROPHILS % (AUTO) 90.5 % (42.2-75.2); PLATELET COUNT (AUTO) 147 K/uL (140-450); RED BLOOD CELL COUNT(AUTO) 4.28 MIL/uL (4.20-5.40); RED CELL DISTRIBUTION WIDTH 16.4 % (11.6-13.7); WHITE BLOOD COUNT (AUTO) 15.8 K/uL (4.8-10.8)
--- NOTE | 2022-10-03 07:03 | NUR ---
PT SIGNED CONSENT FOR SURGERY PROCEDURE THIS MORNING. PT IS AWAKE, ALERT AND ORIENTED X4.
[2022-10-03 07:25] LABS: ANION GAP 10.3 (8-16); CARBON DIOXIDE 25.3 mmol/L (21-32); CREATININE 1.5 mg/dL (0.6-1.3); POTASSIUM 3.6 mmol/L (3.5-5.1)
[2022-10-03] MEDS ORDERED: MIDAZOLAM 2 MG/2 ML VIAL ONE ×2 (07:30→07:38)
[2022-10-03] MEDS ORDERED: fentaNYL citrate 0.05 MG/ML VIAL ONE ×2 (07:30→07:39)
[2022-10-03] MEDS ORDERED: SEVOFLURANE 250 ML BTL INH ONE (07:30)
[2022-10-03] MEDS ORDERED: PROPOFOL 200 MG/20 ML VIAL IV ONE (07:30)
--- NOTE | 2022-10-03 07:40 | NUR ---
PATIENT IN OR.
[2022-10-03] MEDS ORDERED: DEXAMETHASONE 4 MG/ML VIAL ONE ×2 (08:11)
[2022-10-03] MEDS ORDERED: ONDANSETRON 4 MG/2 ML VIAL ONE (08:11)
[2022-10-03] MEDS ORDERED: METOCLOPRAMIDE 10 MG/2 ML INJ VIAL ONE (08:11)
[2022-10-03] MEDS ORDERED: PIPERACILLIN/TAZOBACTAM 3.375 GM VIAL IV ONE (08:35)
--- NOTE | 2022-10-03 09:46 | NUR ---
RECEIVED BEDSIDE REPORT FROM O.R. NURSE FOR CONTINUITY OF CARE. PT A/OX4, MONTENEGRIN SPEAKING. ABLE TO MAKE NEEDS KNOWN. ST ON MONITOR. ROOM AIR O2 SATURATION 94%. EQUAL CHEST RISE, NO S/SX OF ACUTE RESPIRATORY DISTRESS. RR 22. 20G IV TO RAC. F/C TO GRAVITY DRAINING CLEAR LIGHT YELLOW URINE. MILD WEAKNESS THROUGHOUT. STANDARD ISOLATION. CALL LIGHT WITHIN REACH, BED IN LOWEST POSITION.
[2022-10-03] MEDS ORDERED: PIPERACILLIN/TAZOBACTAM 3.375 GM in DEXTROSE 5% 50 ML IV SCH (10:00)
[2022-10-03] MEDS: TAMSULOSIN 0.4 MG CAP PO SCH ×2 (10:09→21:00)
[2022-10-03] MEDS: PANTOPRAZOLE 40 MG TABEC PO SCH (10:09)
--- NOTE | 2022-10-03 10:25 | NUR ---
CONSULTED Saravanan DURBIN FOR ORDERS. ORDERED TO KEEP PT IN ICU FOR 1 NIGHT TO CLOSELY MONITOR AND TO START REGULAR DIET.
--- NOTE | 2022-10-03 10:25 | NUR ---
PATIENT HAS BEEN SCREENED AND CATEGORIZED MODERATE NUTRITION RISK. PATIENT WILL BE SEEN WITHIN 3-5 DAYS OF ADMISSION. 10/02/22-10/07/22 REVIEWED BY ANDREA RO[address] RD
--- NOTE | 2022-10-03 12:00 | NUR ---
PT TOLERATED LUNCH/SNACKS WELL. NO REPORT OF N/V. Addendum: 10/03/22 at 1351 by Iman Fernandez RN APPETITE GOOD, ATE 75% OF MEAL
--- NOTE | 2022-10-03 12:07 | NUR ---
DC PLANN[age] YRS OLD FEMALE PATIENT WAS ADMITTED FROM HOME WITH A DX OF INFECTED KIDNEY STONE. PATIENT HAS A HX OF KIDNEY STONE. CT ABD/PELVIS SHOWED MODERATE RIGHT OBSTRUCTIVE UROPATHY. CXR SHOWED PROMINENT PULMONARY VASCULARITY. RAPID COVID TEST NEGATIVE. ADMINISTERED IVF, IV ABX ZOSYN . CONSULTED WITH [facility]ITICAL [facility]ARE PULMO, UROLOGIST AND ID. DC PLAN TO GO HOME WHEN STABLE. CM TO FOLLOW Addendum: 10/04/22 at 1302 by Zakiya Broussard RN DC PLANNING: TRANSFER TO [facility]. CONTINUED IV ABX ZOSYN URINE CULTURE PENDING. UROLOGIST CLEARED PATIENT AND ORDERED TO FOLLOW UP OUTPATIENT UROLOGY. DC PLAN TO GO HOME WHEN STABLE. CM TO FOLLOW
[2022-10-03] MEDS: HYDROcodone/APAP 7.5/325 MG 1 TAB PO PRN ×2 (13:21→18:45)
--- NOTE | 2022-10-03 13:25 | NUR ---
PT REPORTED 5/10 PAIN IN BLADDER REGION. MEDICATED WITH PRN NORCO.
[2022-10-03 14:19] LABS: T4 (THYROXINE) 0.6 ug/dL (4.5 - 12.0)
--- NOTE | 2022-10-03 14:20 | NUR ---
PT RESTING COMFORTABLY IN BED, RESPIRATIONS EVEN AND UNLABORED. REPORTED DECREASED PAIN /10. ALL COMFORT NEEDS MET AT THIS TIME.
--- NOTE | 2022-10-03 17:21 | NUR ---
SEEN AND EXAMINED BY DR. RACHEL V. NO NEW ORDERS.
--- NOTE | 2022-10-03 18:35 | NUR ---
PT CONSUMED 90% OF DINNER. DENIES N/V.
--- NOTE | 2022-10-03 18:46 | NUR ---
PT REPORTED 6/10 PAIN IN PUBIC AREA. REQUESTED NORCO. MEDICATED WITH PRN NORCO.
--- NOTE | 2022-10-03 19:19 | NUR ---
ENDORSED BEDSIDE REPORT TO RUBI LIVE RN, FOR CONTINUITY OF CARE.
--- NOTE | 2022-10-03 19:20 | NUR ---
RECEIED REPORT FROM JOHN. PT AWAKE WITH NO C/O PAIN,NSHE WAS REMANDED TO ICU S/P A CYSTOSCOPY SUGERY TODAY . SHE IS REPORTEDTO HAVE A GOOD APPETITE AND ATE 75-90% OF HER DINNER. HER VITAL SIGHS ARE WNL. SHE HAS IV ACCESS IN THE RAC 20 GAUGE WHICH SHE WANTED REMOVED. AFTER I FLUSHED IT AND GOT GOOD BLOOD RETURN SHE CONSENTED TO KEEP IT. SHE HAS A NOLASCO CATH DRAINING STRAW COLORED URINE. SHE IS WO DISTRESS PRESENTLY
[2022-10-04] VITALS (12 sets, daily range): BP systolic 93–150; BP diastolic 52–89
[2022-10-04] MEDS: PIPERACILLIN/TAZOBACTAM 3.375 GM in DEXTROSE 5% 50 ML IV SCH ×4 (02:00→21:07)
[2022-10-04] MEDS: DEXT 5% /NACL 0.9% 1,000 ML IV SCH (02:58)
--- NOTE | 2022-10-04 03:00 | NUR ---
PT IS AWAKE IN SPITE OF THE MBIEN GIVEN AT 0000. SHE SEEMS TO BE VERY UNCOMFORTABLE. WHEN ASKED IF SHE A BATH SHE SAID NO BUT INDICATED THE SHE WAS UNCOMFORTABLE WITH THE LUMPS UNDER HER. OLD PADDINGS AND DRAW SHEET REMOVED; REPLACED WITH FRESH PADS AND SHE SAID HER PILLOW WAS RO HARD . A SOFT PILLOW WAS PROVIDED. FINALLY SHE COMPLAINED OF PAIN 07/04 A NORCO WAS ADMINISTERED. SHE SMILE AND SAID THANK YOU.
[2022-10-04 06:24] LABS: BASOPHILS % (AUTO) 0.1 % (0.0-2.0); EOSINOPHILS # (AUTO) 0.1 K/uL (0-0.4); EOSINOPHILS % (AUTO) 0.3 % (0.0-4.0); HEMATOCRIT 30.3 % (36-48); HEMOGLOBIN 9.8 g/dL (12.0-16.0); LYMPHOCYTES # (AUTO) 1.3 K/uL (2.5-16.5); LYMPHOCYTES % (AUTO) 7.7 % (20.5-51.1); MEAN CORPUSCULAR HEMOGLOBIN 25 pg (27-31); MEAN CORPUSCULAR HGB CONC 32 g/dL (33-37); MEAN CORPUSCULAR VOLUME 75.7 fL (80-94); MONOCYTES # (AUTO) 0.4 K/uL (0.8-1.0); MONOCYTES % (AUTO) 2.6 % (1.7-9.3); NEUTROPHILS # (AUTO) 15.1 K/uL (1.8-7.7); NEUTROPHILS % (AUTO) 89.3 % (42.2-75.2); PLATELET COUNT (AUTO) 123 K/uL (140-450); RED CELL DISTRIBUTION WIDTH 16.9 % (11.6-13.7); WHITE BLOOD COUNT (AUTO) 16.9 K/uL (4.8-10.8)
[2022-10-04 06:30] LABS: ANION GAP 9.4 (8-16); CARBON DIOXIDE 20.6 mmol/L (21-32); CREATININE 1.3 mg/dL (0.6-1.3)
--- NOTE | 2022-10-04 07:15 | NUR ---
RECEIVED BEDSIDE REPORT FROM PUBLIC INFORMATION RELATIONS MANAGER CALOS GORDON. PT IS ALERT AND ORIENTED X4, UKRAINIAN SPEAKING. AWAKE, BEDREST. ROOM AIR, SR ON MONITOR. NO S/S OF ACUTE RESPIRATORY DISTRESS. IV TO RT AC 20G, RUNNING D5 NS AT 150MLS/HR. NOLASCO IN PLACE TO GRAVITY, URINE, CLEAR AND YELLOW. CALL LIGHT WITHIN REACH, WILL CONTINUE TO MONITOR.
[2022-10-04] MEDS: HYDROcodone/APAP 7.5/325 MG 1 TAB PO PRN ×2 (07:40→11:53)
--- NOTE | 2022-10-04 07:45 | NUR ---
SEEN AND EXAMINED BY DR WEBB. NO NEW ORDER.
[2022-10-04] MEDS: NACL 0.9% 1,000 ML IV SCH ×3 (08:13→21:00)
[2022-10-04] MEDS: PANTOPRAZOLE 40 MG TABEC PO SCH (08:52)
[2022-10-04] MEDS: TAMSULOSIN 0.4 MG CAP PO SCH ×2 (08:52→21:07)
--- NOTE | 2022-10-04 10:14 | NUR ---
SEEN AND EXAMINED BY DR YUAN. NO NEW ORDER.
--- NOTE | 2022-10-04 13:40 | NUR ---
DC PLANNING SW MET WITH PT AT BEDSIDE TO COMPLETE ASSESSMENT, HOWEVER, PT HEAVILY SLEEPY AND REQUESTED SW CALL PARTNER. PT PROVIDED SW WITH UPDATED PHONE NUMBER FOR DARVIN VELEZ. OUTREACHED TO DARVIN VELEZ TO GATHER COLLATERAL INFORMATION. DARVIN REPORTS PT RESIDES IN A SINGLE STORY HOME WITH FAMILY AT THE ADDRESS LISTED ON FILE. DARVIN IDENTIFIED HIMSELF, AND VIRY HERNANDEZ, DAUGHTER, PTS EMERGENCY CONTACTS. DARVIN DENIES PT HAS AD IN PLACE AND DECLINED AD OFFERED BY SW. DARVIN STRUGGLED TO RECALL PT LAST VISIT WITH PCP HE REPORTS PATIENT IS TYPICALLY IN [facility]. PATIENT IS REPORTED TO NOT TAKE ANY MEDICATION AT THIS TIME AND FAMILY DENIES BARRIERS IN ACCESS TO MEDICATION, IF REQUIRED. PATIENT IS REPORTED TO RECEIVE MEDIATION FROM [facility] [address] IN [place], WHEN NEEDED. PATIENT IS REPORTED TO BE INDEPENDENT IN ALL ACTIVITIES, NO DME REQUIRED.DARVIN DENIES MH/SA HX. DARVIN REPORTS ADEQUATE FOOD IN THE HOME AND DENIES BARRIERS IN ACCESS TO FOOD SOURCES. DARVIN REPORTS DC PLAN IS ROMELIA PATIENT TO RETURN HOME WITH FAMILY PROVIDING TRANSPORTATION, WHEN MEDICALLY STABLE. SW INQUIRED ON RESOURCES NEEDED, DARVIN DECLINED AT THIS TIME. FAMILY DENIES HX OF DIABETES, DIALYSIS [place], HOME HEALTH SERVICES. Addendum: 10/04/22 at 1344 by Cecil LIZ Amended: Links added.
--- NOTE | 2022-10-04 15:00 | NUR ---
PT IS SLEEPING, PULSE 78, BP106/60, O2 SAT 96%, RR 19. VS STABLE.
--- NOTE | 2022-10-04 18:52 | NUR ---
PT TRANSFERRED TO TELE ROOM 106B VIA WHEELCHAIR. PT TOLERATE WELL. BEDSIDE REPORT GIVEN TO KG GORDON.
--- NOTE | 2022-10-04 19:30 | NUR ---
RECEIVED REPORT FROM DAY SHIFT NURSE. PATIENT AWAKE ALERT VERBALLY RESPONSIVE. ABLE TO COMMUNICATE WITH HER NEEDS. KYRGYZ SPEAKING. ABLE TO AMBULATE. NO DISTRESS NOTED. IVF NS INFUSING AT 100 MLS/HR ON THE RIGHT HAND. CALL LIGHT WITHIN REACH. SAFETY MEASURES ARE IN PLACE. NEEDS ATTENDED AND MET.
--- NOTE | 2022-10-04 21:07 | NUR ---
ALL 2100 SCHEDULED MEDICATIONS ADMINISTERED ORDERED.
[2022-10-05] VITALS: BP 139/90
[2022-10-05] MEDS: MORPHINE SULFATE 2 MG/ML SYR IVP PRN ×5 (00:40→20:40)
[2022-10-05] MEDS: PIPERACILLIN/TAZOBACTAM 3.375 GM in DEXTROSE 5% 50 ML IV SCH ×3 (01:41→14:09)
[2022-10-05] MEDS: NACL 0.9% 1,000 ML IV SCH ×2 (03:55→13:56)
[2022-10-05 04:00] VITALS: BP 139/90
--- NOTE | 2022-10-05 04:19 | NUR ---
COMPLAINED OF SEVERE MID BACK PAIN, MEDICATED WITH DILAUDID PRN IVP
--- NOTE | 2022-10-05 05:42 | NUR ---
PATIENT SLEEPING, BREATHING NORMAL WITH SYMMETRICAL RISE AND FALL OF THE CHEST. CALL LIGHT WITHIN REACH.
[2022-10-05 06:19] LABS: BASOPHILS % (AUTO) 0.2 % (0.0-2.0); EOSINOPHILS # (AUTO) 0.1 K/uL (0-0.4); EOSINOPHILS % (AUTO) 0.9 % (0.0-4.0); HEMATOCRIT 32.9 % (36-48); HEMOGLOBIN 10.5 g/dL (12.0-16.0); LYMPHOCYTES % (AUTO) 16.5 % (20.5-51.1); MEAN CORPUSCULAR HEMOGLOBIN 24 pg (27-31); MEAN CORPUSCULAR HGB CONC 32 g/dL (33-37); MEAN CORPUSCULAR VOLUME 75.8 fL (80-94); MONOCYTES # (AUTO) 0.6 K/uL (0.8-1.0); NEUTROPHILS # (AUTO) 9.5 K/uL (1.8-7.7); NEUTROPHILS % (AUTO) 77.4 % (42.2-75.2); PLATELET COUNT (AUTO) 157 K/uL (140-450); RED BLOOD CELL COUNT(AUTO) 4.34 MIL/uL (4.20-5.40); WHITE BLOOD COUNT (AUTO) 12.2 K/uL (4.8-10.8)
[2022-10-05 06:37] LABS: ANION GAP 9.9 (8-16); CARBON DIOXIDE 23.7 mmol/L (21-32); CREATININE 1.2 mg/dL (0.6-1.3); POTASSIUM 3.6 mmol/L (3.5-5.1)
--- NOTE | 2022-10-05 07:13 | NUR ---
GAVE REPORT TO MORNING SHIFT NURSE SHAVON FOR CONTINUITY OF CARE.
--- NOTE | 2022-10-05 07:15 | NUR ---
RECEIVED BEDSIDE REPORT FROM EVAN SANCHEZ FOR CONTINUITY OF CARE. PT IS A&OX4, KINYARWANDA SPEAKING. PT IS ON ROOM AIR, SATING AT 98%. PT HAS 24G IV ON THE RIGHT HAND WHICH IS PATENT AND INTACT. PT HAS A 16FRENCH NOLASCO IN PLACE. PT IS IN PAIN, WILL ADMINISTER PRESCRIBED MEDICATIONS AFTER REPORT. BED IS IN LOWEST POSITION, CALL LIGHT WITHIN REACH.
[2022-10-05] MEDS: OXYBUTYNIN 5 MG TAB PO SCH ×2 (08:50→20:52)
[2022-10-05] MEDS: TAMSULOSIN 0.4 MG CAP PO SCH ×2 (08:50→20:52)
[2022-10-05] MEDS: DOCUSATE SODIUM 100 MG GELCAP PO PRN ×2 (08:51→17:59)
[2022-10-05] MEDS: PANTOPRAZOLE 40 MG TABEC PO SCH (08:51)
[2022-10-05 16:00] VITALS: BP 106/65
--- NOTE | 2022-10-05 16:00 | NUR ---
ENDORSED PT TO EVAN HARDING FOR CONTINUITY OF CARE. PT IS IN STABLE CONDITION. NO S/S OF DISTRESS AT THIS MOMENT.
[2022-10-05 20:00] VITALS: BP 109/66
--- NOTE | 2022-10-05 20:00 | NUR ---
AWAKE,ALERT AND ORIENTED.RESP.UNLABORED IN RA.IVF INFUSING WELL.CALL LIGHT IN REACH.NO DISTRESS NOTED NOW.WILL CONTINUE MONITORING.
[2022-10-06] VITALS: BP 112/66
--- NOTE | 2022-10-06 | NUR ---
PT WAS NOT ON MONITOR SINCE BEGINNING OF THE SHIFT.TRY TO FIND ORDER FOR TRANSFER TO [place] BUT NO ORDER FOUND SO PUT PT ON MONITOR UNTIL AM TO CLARIFY WITH DR.HR IS SR.NO DISTRESS NOTED NOW.F/C PATENT AND DRAINING YELLOW COLOR URINE.
[2022-10-06] MEDS: NACL 0.9% 1,000 ML IV SCH ×4 (00:09→23:10)
[2022-10-06 04:00] VITALS: BP 133/68
--- NOTE | 2022-10-06 04:37 | NUR ---
SLEEPING.NO S/S OF ANY DISTRESS.HR IS SR.IVF IS IN PROGRESS.
--- NOTE | 2022-10-06 06:40 | NUR ---
SLEPT WELL.HAS GOOD URINE OUT PUT.IVF INFUSING WELL.CALL LIGHT IN REACH.NO DISTRESS NOTED AT PRESENT TIME.
[2022-10-06] MEDS: MORPHINE SULFATE 2 MG/ML SYR IVP PRN ×3 (07:15→20:26)
--- NOTE | 2022-10-06 07:18 | NUR ---
RECEIVED BEDSIDE REPORT FROM EVAN PEPE, FOR CONTINUITY OF CARE. PT A/OX4, [place] SPEAKING, ABLE TO MAKE NEEDS KNOWN. SR ON MONITOR, 20G IV TO L HAND INFUSING NS AT 100ML/HR. BOWEL SOUNDS ACTIVE. F/C TO GRAVITY DRAINING CLEAR YELLOW URINE. MILD WEAKNESS THROUGHOUT. STANDARD PRECAUTION, CALL LIGHT WITHIN REACH. BED LOCKED AND IN LOWEST POSITION.
--- NOTE | 2022-10-06 07:18 | NUR ---
HAD C/O FLANK PAIN IV MORPHINE GIVEN.AM RN WILL DO PAIN REASSESSMENT.
[2022-10-06 07:23] LABS: ANION GAP 10.2 (8-16); CARBON DIOXIDE 23.3 mmol/L (21-32); CREATININE 1.1 mg/dL (0.6-1.3); POTASSIUM 3.5 mmol/L (3.5-5.1)
[2022-10-06 07:27] LABS: BASOPHILS % (AUTO) 0.3 % (0.0-2.0); EOSINOPHILS # (AUTO) 0.2 K/uL (0-0.4); EOSINOPHILS % (AUTO) 2.2 % (0.0-4.0); HEMATOCRIT 35.8 % (36-48); HEMOGLOBIN 11.4 g/dL (12.0-16.0); LYMPHOCYTES # (AUTO) 2.1 K/uL (2.5-16.5); MEAN CORPUSCULAR HEMOGLOBIN 24 pg (27-31); MEAN CORPUSCULAR HGB CONC 32 g/dL (33-37); MEAN CORPUSCULAR VOLUME 75.5 fL (80-94); MONOCYTES # (AUTO) 0.8 K/uL (0.8-1.0); MONOCYTES % (AUTO) 8.2 % (1.7-9.3); NEUTROPHILS # (AUTO) 6.2 K/uL (1.8-7.7); NEUTROPHILS % (AUTO) 66.3 % (42.2-75.2); PLATELET COUNT (AUTO) 169 K/uL (140-450); RED BLOOD CELL COUNT(AUTO) 4.74 MIL/uL (4.20-5.40); RED CELL DISTRIBUTION WIDTH 16.9 % (11.6-13.7); WHITE BLOOD COUNT (AUTO) 9.3 K/uL (4.8-10.8)
[2022-10-06 08:00] VITALS: BP 97/56
[2022-10-06] MEDS: OXYBUTYNIN 5 MG TAB PO SCH ×3 (08:09→20:30)
[2022-10-06] MEDS: DOCUSATE SODIUM 100 MG GELCAP PO PRN (08:09)
[2022-10-06] MEDS: TAMSULOSIN 0.4 MG CAP PO SCH ×2 (08:09→20:31)
[2022-10-06] MEDS: levoFLOXacin 500 MG TAB PO SCH (08:09)
[2022-10-06] MEDS: PANTOPRAZOLE 40 MG TABEC PO SCH (08:09)
--- NOTE | 2022-10-06 08:10 | NUR ---
PT REQUESTED SOMETHING FOR CONSTIPATION, MEDICATED WITH PRN COLACE.
[2022-10-06] MEDS: ONDANSETRON 4 MG/2 ML VIAL IM/IVP PRN (08:23)
[2022-10-06] MEDS ORDERED: KETOROLAC 15 MG/ML VIAL IVP PRN (09:55)
[2022-10-06 12:00] VITALS: BP 122/74
--- NOTE | 2022-10-06 12:30 | NUR ---
20G IV TO L HAND NOTED TO BE INFILTRATED. DC'D AND STARTED NEW 22G IV TO L HAND. FLUSHES WELL AND WITHOUT PAIN.
--- NOTE | 2022-10-06 13:27 | NUR ---
PT CRYING AND C/O SEVERE PELVIC AREA PAIN. MEDICATED WITH PRN MORPHINE.
--- NOTE | 2022-10-06 13:30 | NUR ---
AT BEDSIDE, UPDATED ON POC. ALL QUESTIONS ANSWERED.
[2022-10-06 16:00] VITALS: BP 107/65
--- NOTE | 2022-10-06 17:00 | NUR ---
PT C/O PAIN WITH INDWELLING CATHETER. CLEANSED PROXIMAL TUBE WITH IODINE, DEFLATED 9ML FROM BALLOON, AND ADVANCED CATHETER. INFLATED BALLOON WITH 10ML SALINE. REPLACED NOLASCO SECUREMENT DEVICE MORE PROXIMALLY TO AVOID PULLING.
--- NOTE | 2022-10-06 19:17 | NUR ---
ENDORSED BEDSIDE REPORT TO EVAN FERMIN, FOR CONTINUITY OF CARE.
--- NOTE | 2022-10-06 19:30 | NUR ---
RECEIVED REPORT FROM DAY SHIFT NURSE KYUNG FOR CONTINUITY OF CARE. PATIENT IS A&O X4, GUYANESE SPEAKING. PATIENT IS ON ROOM AIR, BREATHING IS NORMAL WITH SYMMETRICAL RISE AND FALL OF CHEST. IV IS A 22G L HAND, RUNNING NS AT 100. PATIENT IS SLEEPING, LYING SUPINE. BED IS IN LOWEST POSITION, WHEELS LOCKED, CALL LIGHT IN PLACE. WILL CONTINUE TO OBSERVE PATIENT.
[2022-10-06 20:00] VITALS: BP_SYST 121; BP_SYST 131; BP_DIAS 68; BP_DIAS 72
--- NOTE | 2022-10-06 20:35 | NUR ---
PATIENT CALLED AND REQUESTED PAIN MEDICATION FOR 10/10 RIGHT FLANK PAIN. PATIENT'S VITALS WERE: BP 131/68, HR 82, O2 97%, RR 16, TEMP 98.4. CHECKED PATIENT'S CHART, MORPHINE IS APPROPRIATE TO ADMINISTER. WENT INTO PATIENT'S ROOM TO ADMINISTER PAIN MEDICATION AND 2100 MEDICATION. PATIENT TOLERATED MEDICATION ADMINISTRATION WELL. PATIENT'S BREATHING WAS NORMAL WITH SYMMETRICAL RISE AND FALL OF CHEST. WILL CONTINUE TO OBSERVE PATIENT.
--- NOTE | 2022-10-06 23:11 | NUR ---
WENT INTO PATIENT'S ROOM AND HUNG NEW IV BAG OF NS. NS RUNNING AT 100 ML. PATIENT WAS SLEEPING, LYING SUPINE ON HER SIDE. BREATHING WAS NORMAL WITH SYMMETRICAL RISE AND FALL OF CHEST. WILL CONTINUE TO OBSERVE PATIENT.
[2022-10-07] VITALS: BP 125/72
--- NOTE | 2022-10-07 01:50 | NUR ---
PATIENT CALLED. COULD HEAR IV PUMP BEEPING. WENT TO LOOK IN ON PATIENT, IV PUMP WAS FACING PATIENT AND IV PUMP DOOR WAS OPEN. CLOSED IV PUMP DOOR AND RESTARTED IV. IV STOPPED SAY HIGH PRESSURE. TRIED FLUSHING LINE, PATIENT IMMEDIATELY INDICATED PAIN. ASSESSED SIGHT, IV SIGHT WAS INFILTRATED. ATTEMPTED TO PLACE NEW IV; WAS UNSUCCESSFUL. EVAN AGUIRRE ATTEMPTED TO PLACE IV, WAS UNSUCCESSFUL. PATIENT CURRENTLY HAS NO IV SITE.
--- NOTE | 2022-10-07 03:57 | NUR ---
LOOKED IN ON PATIENT. PATIENT IS SLEEPING, LYING SUPINE ON SIDE WITH BLANKET PULLED UP TO SHOULDERS. BREATHING IS NORMAL WITH SYMMETRICAL RISE AND FALL OF CHEST. WILL CONTINUE TO OBSERVE PATIENT.
[2022-10-07 04:00] VITALS: BP 107/67
[2022-10-07] MEDS ORDERED: HYDROcodone/APAP 5/325 MG 1 TAB TAB PO PRN (04:55)
--- NOTE | 2022-10-07 04:59 | NUR ---
DR. WEBB ORDERED NORCO 5MG PO Q4H PRN FOR PATIENT BECAUSE IV WAS INFILTRATED. CHARGE NURSE MJ WAS ABLE TO PUT IN NEW IV; NEW IV IS A 22G INTO LEFT AC.
[2022-10-07] MEDS: MORPHINE SULFATE 2 MG/ML SYR IVP PRN (05:03)
--- NOTE | 2022-10-07 05:10 | NUR ---
PATIENT REQUESTED PAIN MEDICATION FOR 06/03 PAIN. VITALS WERE: BP 107/67, HR 88, TEMP 99.8, RR 17, O2 97%.; CHECKED CHART, MORPHINE IS APPROPRIATE TO GIVE. ENTERED ROOM, PATIENT WAS LYING SUPINE ON HER LEFT SIDE. IV WAS RUNNING NS AT 100ML. ADMINISTERED MORPHINE TO PATIENT; PATIENT TOLERATED WELL. BREATHING WAS NORMAL WITH SYMMETRICAL RISE AND FALL OF CHEST. WILL CONTINUE TO OBSERVE PATIENT.
[2022-10-07 07:07] LABS: BASOPHILS % (AUTO) 0.1 % (0.0-2.0); EOSINOPHILS # (AUTO) 0.1 K/uL (0-0.4); EOSINOPHILS % (AUTO) 1.1 % (0.0-4.0); HEMATOCRIT 37.2 % (36-48); HEMOGLOBIN 11.6 g/dL (12.0-16.0); LYMPHOCYTES # (AUTO) 2.5 K/uL (2.5-16.5); LYMPHOCYTES % (AUTO) 20.9 % (20.5-51.1); MEAN CORPUSCULAR HEMOGLOBIN 24 pg (27-31); MEAN CORPUSCULAR HGB CONC 31 g/dL (33-37); MEAN CORPUSCULAR VOLUME 76.3 fL (80-94); MONOCYTES # (AUTO) 0.8 K/uL (0.8-1.0); MONOCYTES % (AUTO) 6.5 % (1.7-9.3); NEUTROPHILS # (AUTO) 8.4 K/uL (1.8-7.7); NEUTROPHILS % (AUTO) 71.4 % (42.2-75.2); PLATELET COUNT (AUTO) 189 K/uL (140-450); RED BLOOD CELL COUNT(AUTO) 4.87 MIL/uL (4.20-5.40); RED CELL DISTRIBUTION WIDTH 16.7 % (11.6-13.7); WHITE BLOOD COUNT (AUTO) 11.8 K/uL (4.8-10.8)
[2022-10-07 07:16] LABS: CARBON DIOXIDE 25.3 mmol/L (21-32); POTASSIUM 3.3 mmol/L (3.5-5.1)
--- NOTE | 2022-10-07 07:38 | NUR ---
ENDORSED CARE TO DAY SHIFT NURSE LEX. PATIENT IS STABLE.
[2022-10-07] MEDS ORDERED: LEVO-481 PO (09:15)
[2022-10-07] MEDS ORDERED: OXYB-118 PO (09:15)
[2022-10-07] MEDS: OXYBUTYNIN 5 MG TAB PO SCH (09:46)
[2022-10-07] MEDS: TAMSULOSIN 0.4 MG CAP PO SCH (09:47)
[2022-10-07] MEDS: levoFLOXacin 500 MG TAB PO SCH (09:48)
[2022-10-07] MEDS: PANTOPRAZOLE 40 MG TABEC PO SCH (09:50)
[2022-10-07 14:01] VITALS: BP 119/70
--- NOTE | 2022-10-07 14:45 | NUR ---
[employer]CIAL [employer]ING RELATIONSHIP MANAGER REMOVED. NOLASCO CATHETER REMOVED WITH 250CC CLEAR YELLOW URINE. HEPLOCK ON RIGH FOREARM DC'D. DISCHARGE INSTRUCTIONS REVIEWED WITH PATIENT AND PT VERBALIZED UNDERSTANDING.. DISCHARGED WITH PER PRIVATE AUTO TO HOME.
== END 2022-10-07 16:01 | disposition home or self-care (01) | DRG 720 ==
LOC: MED 10:25 → MTU 17:29 → MIC 10-03 09:46 → MTU 10-04 18:50
PROVIDERS: ADMIT Family Medicine; ATTEND Family Medicine
PROC: BT1DZZZ Fluoroscopy of Right Kidney, Ureter and Bladder (ICD-10-PCS; 2022-10-03)
PROC: 0T768DZ Dilation of Right Ureter with Intraluminal Device, Via Natural or Artificial Opening Endoscopic (ICD-10-PCS; principal; 2022-10-03 07:30)
DX: A41.51 Sepsis due to Escherichia coli [E. coli] (principal); N17.0 Acute kidney failure with tubular necrosis; E44.0 Moderate protein-calorie malnutrition; N13.6 Pyonephrosis; E83.51 Hypocalcemia; N13.9 Obstructive and reflux uropathy, unspecified; K42.9 Umbilical hernia without obstruction or gangrene; K76.0 Fatty (change of) liver, not elsewhere classified; N28.89 Other specified disorders of kidney and ureter; R65.20 Severe sepsis without septic shock; K43.9 Ventral hernia without obstruction or gangrene; Z20.822 Contact with and (suspected) exposure to COVID-19; Z87.442 Personal history of urinary calculi; Z79.1 Long term (current) use of non-steroidal anti-inflammatories (NSAID); Z79.899 Other long term (current) drug therapy; Z68.32 Body mass index [BMI] 32.0-32.9, adult
CPT/HCPCS: 36415; 71045; 74018; 74450; 80048; 80053; 81001; 82150; 83036; 83690; 83735; 83880; 84100; 84436; 84439; 84443; 84479; 84484; 85025; 85610; 85730; 87040; 87081; 87086; 93005; 96365; 96375; 99285; C1758; C1769; J0696; J1100; J1170; J1885; J2250; J2270; J2405; J2543; J2704; J2765; J3010; J3475; J7030; J7042; J7060; Q0092

== ENCOUNTER 2023-05-26 13:14 | Emergency (ER) | payer MEDICAID ==
[~2023-05-26] VITALS: Ht 157.5 cm; Wt 90.7 kg
[~2023-05-26 13:14] MED LIST changes: -CEPH-588 PO; -LACT1CAP63 PO; +LEVO-481 PO; +OXYB-118 PO; -SULF-954 PO
[2023-05-26 13:22] VITALS: BP 137/91; PULSE 93; RESP 20; TEMP 97.7; O2SAT 98
[2023-05-26] MEDS ORDERED: KETOROLAC 30 MG/ML VIAL IM ONE (14:00)
[2023-05-26 14:11] LABS: BASOPHILS # (AUTO) 0.1 K/uL (0.00-0.22); BASOPHILS % (AUTO) 0.7 % (0.0-2.0); EOSINOPHILS # (AUTO) 0.2 K/uL (0-0.4); EOSINOPHILS % (AUTO) 2.2 % (0.0-4.0); HEMATOCRIT 39.6 % (36-48); HEMOGLOBIN 12.9 g/dL (12.0-16.0); LYMPHOCYTES # (AUTO) 2.9 K/uL (2.5-16.5); LYMPHOCYTES % (AUTO) 35.1 % (20.5-51.1); MEAN CORPUSCULAR HEMOGLOBIN 24 pg (27-31); MEAN CORPUSCULAR HGB CONC 33 g/dL (33-37); MEAN CORPUSCULAR VOLUME 74.6 fL (80-94); MONOCYTES # (AUTO) 0.5 K/uL (0.8-1.0); MONOCYTES % (AUTO) 5.4 % (1.7-9.3); NEUTROPHILS # (AUTO) 4.7 K/uL (1.8-7.7); NEUTROPHILS % (AUTO) 56.6 % (42.2-75.2); PLATELET COUNT (AUTO) 289 K/uL (140-450); RED BLOOD CELL COUNT(AUTO) 5.32 MIL/uL (4.20-5.40); WHITE BLOOD COUNT (AUTO) 8.3 K/uL (4.8-10.8)
[2023-05-26 14:26] LABS: ALBUMIN 3.4 g/dL (3.4-5.0); ANION GAP 13.9 (8-16); CARBON DIOXIDE 24.4 mmol/L (21-32); CREATININE 0.8 mg/dL (0.6-1.3); POTASSIUM 4.3 mmol/L (3.5-5.1); TOTAL BILIRUBIN 0.3 mg/dL (0.0-1.0)
[2023-05-26 15:41] LABS: APPEARANCE,URINE CLEAR (CLEAR); BILIRUBIN,URINE NEGATIVE (NEGATIVE); BLOOD, URINE TRACE-I (NEGATIVE); COLOR,URINE YELLOW (YELLOW); LEUKOCYTE ESTERASE ,URINE NEGATIVE (NEGATIVE); NITRITE, URINE NEGATIVE (NEGATIVE); PH,URINE 6.5 (5.0-9.0); UGLUCOSE NEGATIVE (NEGATIVE)
[2023-05-26] MEDS ORDERED: KETOROLAC 30 MG/ML VIAL ONE (15:46)
[2023-05-26 15:52] VITALS: O2SAT 98
[2023-05-26] MEDS ORDERED: LID5T TP (16:48)
[2023-05-26] MEDS ORDERED: IBUP-2213 PO (16:48)
[2023-05-26] MEDS ORDERED: TAMS0.4C96 PO (16:48)
[2023-05-26] MEDS ORDERED: METO-485 PO (16:48)
--- NOTE | 2023-05-26 17:10 | NUR ---
Patient discharged with v/s stable. Written and verbal after care instructions given and explained. Patient alert, oriented and verbalized understanding of instructions. Ambulatory with to home. All questions addressed prior to discharge. ID band removed. Patient advised to follow up with PMD. Rx of LIDOCAINE PATCH, FLOMAX , REGLAN,MOTRIN given. Patient educated on indication of medication including possible reaction and side effects. Opportunity to ask questions provided and answered.
== END 2023-05-26 17:00 | disposition home or self-care (01) ==
LOC: MED 13:14
DX: N20.0 Calculus of kidney (principal); Z90.49 Acquired absence of other specified parts of digestive tract; Z98.51 Tubal ligation status; Z98.890 Other specified postprocedural states; Z79.899 Other long term (current) drug therapy; Z79.1 Long term (current) use of non-steroidal anti-inflammatories (NSAID); Z79.2 Long term (current) use of antibiotics; Z88.8 Allergy status to other drugs, medicaments and biological substances
CPT/HCPCS: 36415; 74176; 80053; 81003; 81025; 83690; 85025; 96372; 99285; J1885

== ENCOUNTER 2023-11-13 20:32 | Emergency (ER) | payer MEDICAID ==
[~2023-11-13 20:32] MED LIST changes: +IBUP-2213 PO; +LID5T TP; +METO-485 PO
== END 2023-11-13 20:50 | disposition left against medical advice (07) ==
LOC: MED 20:32
DX: M54.9 Dorsalgia, unspecified (principal); Z53.21 Procedure and treatment not carried out due to patient leaving prior to being seen by health care provider